=== PATIENT | male | born 1965 | race Caucasian/White ===

== ENCOUNTER 2019-12-21 21:14 | Emergency (ER) | payer OTHER ==
[~2019-12-21] VITALS: Ht 180.3 cm; Wt 88.7 kg
[2019-12-21 21:20] VITALS: BP 137/91; Ht 180.3 cm; Wt 88.7 kg
[2019-12-21] MEDS ORDERED: ULTRAM50 MG PO (21:44)
== END 2019-12-21 21:56 | disposition home or self-care (01) ==
LOC: D.ER 21:14
DX: S61.240A Puncture wound with foreign body of right index finger without damage to nail, initial encounter (principal); X58.XXXA Exposure to other specified factors, initial encounter